=== PATIENT | male | born 1935 | race American Indian/Alaskan Native ===

== ENCOUNTER 2019-08-05 16:55 | Emergency (ER) | payer MEDICARE ==
[2019-08-05 17:08] VITALS: BP 140/86
--- NOTE | 2019-08-05 17:31 | ED Physician Documentation ---
History of Present Illness - Stated complaint Stated Complaint: GROIN PX - Chief complaint Chief Complaint: General - History obtained from History obtained from: Patient, Family - History of Present Illness Timing: Today Pain level max: 9 Pain level now: 0 - Additonal information Additional information: Patient has a right inguinal hernia. He states he is scheduled for surgery tomorrow morning. States it became painful earlier today. Not painful now. No vomiting. No fevers. Nothing makes it better or worse. Review of Systems Constitutional: denies: Fever, Chills Cardiac: denies: Chest pain / pressure Respiratory: denies: Cough GI: denies: Vomiting, Diarrhea Skin: denies: Rash Musculoskeletal: denies: Neck pain, Back pain PD PAST MEDICAL HISTORY - Past Medical History Past Medical History: Yes Neuro: Dementia - Present Medications Home Medications: Ambulatory Orders Medication Instructions Recorded Confirmed No Known Home Medications 08/05/19 08/05/19 - Allergies Allergies/Adverse Reactions: Allergies Allergy/AdvReac Type Severity Reaction Status Date / Time No Known Drug Allergies Allergy Verified 08/05/19 17:08 - Social History Does the pt smoke?: No Smoking Status: Never smoker PD ED PE NORMAL - Vitals Vital signs reviewed: Yes - General General: Alert and oriented X 3, No acute distress - HEENT HEENT: Moist mucous membranes - Neck Neck: Supple, no meningeal sign - Cardiac Cardiac: RRR - Respiratory Respiratory: No respiratory distress, Clear bilaterally - Abdomen Abdomen: Soft, Non tender, Non distended - Male Male : Other (Small right inguinal hernia. No tenderness palpation. No swelling. No skin changes.) - Derm Derm: Warm and dry - Neuro Neuro: Alert and oriented X 3 Results - Vitals Vitals: Vital Signs - 24 hr 08/05/19 17:06 Temperature 36.6 C Heart Rate 83 Respiratory 18 Rate Blood Pressure 140/86 H O2 Saturation 100 Oxygen O2 Source Room air PD MEDICAL DECISION MAKING - ED course Complexity details: considered differential, d/w patient ED course: Patient with a small right inguinal hernia. No evidence of incarceration. No evidence of bowel obstruction. No evidence of bowel infarct. Abdomen is soft, nontender nondistended. He is scheduled for surgery tomorrow. We will have him follow-up with his surgeon tomorrow. Patient and family counseled regarding signs and symptoms for which I believe and urgent re-evaluation would be necessary. Patient with good understanding of and agreement to plan and is comfortable going home at this time This document was made in part using voice recognition software. While efforts are made to proofread this document, sound alike and grammatical errors may occur. Departure - Departure Disposition: 01 Home, Self Care Clinical Impression: Right inguinal hernia Condition: Good Instructions: ED Hernia Inguinal Follow-Up: Ector Lopez MD [Provider Admit Priv/Credential] - Tomorrow Comments: Follow-up with Dr. Lopez in the morning for your surgery as scheduled. Return if you worsen. Discharge Date/Time: 08/05/19 17:34
== END 2019-08-05 17:34 | disposition home or self-care (01) ==
LOC: ED 16:55
DX: K40.90 Unilateral inguinal hernia, without obstruction or gangrene, not specified as recurrent (principal); F03.90 Unspecified dementia, unspecified severity, without behavioral disturbance, psychotic disturbance, mood disturbance, and anxiety
CPT/HCPCS: 99281; 99284

== ENCOUNTER 2019-08-06 06:57 | Day surgery (SDC) | payer MEDICARE ==
[2019-08-06] MEDS ORDERED: CEFAZOLIN SODIUM IN 0.9 % NACL 2 GM/100 ML BAG IV ONE (07:26)
[2019-08-06] MEDS ORDERED: LACTATED RINGERS 1,000 ML IV ONE ×2 (07:47→11:30)
--- NOTE | 2019-08-06 07:58 | ANESTHESIA ---
Pre-Anesthesia VS, & Labs - Diagnosis Right Inguinal hernia - Procedure right inguinal hernia repair with mesh Vital Signs: Temp Pulse Resp BP Pulse Ox 36.7 C 79 18 136/82 H 98 08/06/19 07:21 08/06/19 07:21 08/06/19 07:21 08/06/19 07:21 08/06/19 07:21 Height 5 ft 10 in Weight (kg) 75.3 kg Body Mass Index 23.6 - NPO >8 hours Home Medications and Allergies Home Medications: Ambulatory Orders Turmeric 400 mg PO DAILY 08/06/19 Turmeric 400 mg PO DAILY 08/06/19 CBD oil Allergies/Adverse Reactions: Allergies Allergy/AdvReac Type Severity Reaction Status Date / Time No Known Drug Allergies Allergy Verified 08/06/19 07:34 Anes History & Medical History - Anesthetic History Anesthesia Complications: reports: No previous complications - Medical History Cardiovascular: reports: None Pulmonary: reports: None Gastrointestinal: reports: None Urinary: reports: None Neuro: reports: Dementia Musculoskeletal: reports: None Endocrine/Autoimmune: reports: None Skin: reports: None Smoking Status: Former smoker (Quit in 1968. 15 pack year history) Psychosocial: reports: Cannabis (CBC oil daily) - Surgical History Eyes Ears Nose Throat (EENT): Tonsil/Adenoidectomy Exam General: Alert, Cooperative, No acute distress Dental: Poor dentition Mouth Openin Fingerbreadth Neck Mobility: Normal Mallampati classification: I Thyromental Distance: greater than 6 cm Respiratory: Lungs clear, Normal breath sounds, No respiratory distress, No accessory muscle use Cardiovascular: Regular rate, Normal S1, Normal S2, No murmurs Cognitive Status: Dementia Plan Anesthesia Type: MAC Consent for Procedure(s) Verified and Reviewed: Yes Code Status: Attempt Resuscitation ASA classification: 3-Severe systemic disease Is this case an emergency?: No
[2019-08-06] MEDS ORDERED: ceFAZolin 1 GM VIAL ONE (08:11)
[2019-08-06] MEDS ORDERED: LIDOCAINE-MPF 1% 30 ML VIAL ONE (08:12)
[2019-08-06] MEDS ORDERED: BUPIVACAINE 0.5%-EPI 1:200000 PF 30 ML VIAL ONE (08:12)
[2019-08-06] MEDS ORDERED: BUPIVACAINE 0.5%-EPI 1:200000 PF 30 ML VIAL SUBQ ONE ×2 (09:18)
[2019-08-06] MEDS ORDERED: LIDOCAINE 1% 50 ML MDV SUBQ ONE ×2 (09:18)
[2019-08-06] MEDS ORDERED: ceFAZolin 1 GM VIAL IR ONE (09:18)
[2019-08-06] MEDS ORDERED: ACETAMINOPHEN 325 MG TABLET PO PRN (10:26)
[2019-08-06] MEDS ORDERED: ONDANSETRON 4 MG/2 ML VIAL IVP PRN (10:26)
[2019-08-06] MEDS ORDERED: IBUPROFEN 600 MG TABLET PO PRN (10:26)
[2019-08-06] MEDS ORDERED: oxyCODONE 5 MG TABLET PO PRN (10:26)
[2019-08-06 11:11] VITALS: BP 113/74
--- NOTE | 2019-08-06 12:55 | OPERATIVE REPORT ---
DATE OF SERVICE: 08/06/2019 Physician: Ector Lopez MD PREOPERATIVE DIAGNOSIS: Symptomatic right inguinal hernia. POSTOPERATIVE DIAGNOSES 1. Symptomatic right inguinal hernia. 2. Cord lipoma. PROCEDURE PERFORMED 1. Open repair of right inguinal hernia with polypropylene mesh. 2. Resection of cord lipoma. ANESTHESIA: Local plus monitored anesthesia care by Milton Woods CRNA. SURGEON: Ector Lopez MD ESTIMATED BLOOD LOSS: 5 mL COMPLICATIONS: None. DRAINS: None. FINDINGS: A small indirect right inguinal hernia was identified along with a large, 5 cm cord lipoma . There was no evidence of indirect or femoral hernia. INDICATIONS: Patient is an 84-year-old gentleman with recent onset of an exquisitely painful right g roin bulge. Examination revealed a small reducible right inguinal hernia. He was advised to undergo repair. TECHNIQUE: After informed consent, patient was taken to the operating room where he was sedated and monitored. He was placed supine on the procedure table. His right groin had been clipped in the ASU , was prepared with ChloraPrep solution, following which a right groin block was instituted using a 5 0:50 combination of 1% lidocaine plain and 0.5% Marcaine with epinephrine. A total of 30 mL of a mix ture was used. The right groin was re-prepared with ChloraPrep solution and draped in the usual ster ile fashion. Preoperative preparation included application of sequential calf compression boots and administration of 2 grams cefazolin intravenously within an hour of the incision. An incision was ma de in the skin lines of the right groin beginning above the pubic tubercle and extending laterally 5 cm. Hemostasis achieved with electrocautery and 2-0 Vicryl ties. Incision carried down through the layers of abdominal wall until the external oblique aponeurosis was exposed and identified and incise d along the lines of its fibers in such a manner as to open the external ring and expose the internal ring. The spermatic cord was mobilized and encircled with a Lacy drain. The ilioinguinal nerve was divided to avoid injury and entrapment syndrome. The cord was carefully dissected, isolating a l arge cord lipoma, which was dissected free from surrounding cord structures to the level of the inter nal ring, where it was ligated with 2-0 Vicryl, amputated and discarded. Continued dissection of the cord revealed the indirect sac, which was similarly dissected free from surrounding cord structure a t the level of the internal ring. The sac was opened and a finger inserted in the peritoneal cavity. Search for direct and femoral hernias made and none was identified. The hernia sac was then twiste d and doubly highly ligated with 3-0 silk suture ligatures, following which excess hernia sac was amp utated and discarded. After hemostasis was assured, the wound was irrigated with antibiotic solution containing 1 gram cefazolin per liter following which, a Bard mesh medium weight polypropylene precu t slotted inguinal patch was brought onto the field, soaked in the antibiotic solution and then place d over the inguinal floor where it was secured in place circumferentially with continuous 3-0 Prolene sutures, securing the edge of the mesh to the shelving edge of Poupart's ligament inferiorly, to the internal oblique aponeurosis superolaterally and to the lateral border of the rectus sheath medially . Care was taken to avoid excessive tightening of the mesh around the cord at the left internal ring . Once again, after hemostasis was assured, the wound was irrigated with antibiotic solution, follow ing which wound closure was accomplished in layers using continuous 2-0 Vicryl to reapproximate the e xternal oblique aponeurosis overlying the cord, followed by 3-0 Vicryl for Olga's fascia, followed by 4-0 Monocryl for a subcuticular skin closure, followed by Dermabond. The procedure was terminated and patient transferred out of the operating room in satisfactory condition. Sponge and needle coun ts were correct x2 and no drains were used. cc: Angela Woods PA-C TD: 08/06/2019 10:37
== END 2019-08-06 06:58 | disposition home or self-care (01) ==
LOC: SDS 06:57
PROVIDERS: ATTEND Internal Medicine Gastroenterology
PROC: 0VBF0ZZ Excision of Right Spermatic Cord, Open Approach (ICD-10-PCS; 2019-08-06)
PROC: 0YU50JZ Supplement Right Inguinal Region with Synthetic Substitute, Open Approach (ICD-10-PCS; principal; 2019-08-06 08:15)
DX: K40.90 Unilateral inguinal hernia, without obstruction or gangrene, not specified as recurrent (principal); F03.90 Unspecified dementia, unspecified severity, without behavioral disturbance, psychotic disturbance, mood disturbance, and anxiety; Z72.89 Other problems related to lifestyle; Z87.891 Personal history of nicotine dependence
CPT/HCPCS: 49505; C1781; J0690; J7120